=== PATIENT | female | born 1980 | race Caucasian/White ===

== ENCOUNTER 2021-09-09 13:21 | Emergency (ER) | payer OTHER ==
[~2021-09-09] VITALS: Ht 175.3 cm; Wt 86.2 kg
[2021-09-09] MEDS ORDERED: ZOLOFT50 M1 PO (13:31)
[2021-09-09] MEDS ORDERED: ABILIFY10 MG PO (13:31)
[2021-09-09] MEDS ORDERED: DESYREL150 MG PO (13:32)
[2021-09-09] MEDS ORDERED: STRATTERA10 MG PO (13:32)
[2021-09-09] MEDS ORDERED: LIPITOR10 MG PO (13:32)
[2021-09-09] MEDS ORDERED: VALACYCLOVIR1000 MG PO (13:33)
[2021-09-09] MEDS ORDERED: NORTRIPTYLINE H10 M1 PO (13:33)
[2021-09-09 14:19] LABS: ABSOLUTE NEUTROPHILS 4.4 thou/uL (1.4-8.2); BASOPHILS 0.7 % (0.0-2.0); EOSINOPHILS 3.4 % (0.0-3.0); HEMATOCRIT 40.7 % (37.0-47.0); HEMOGLOBIN 13.3 gm/dL (12.0-15.0); LYMPHOCYTES 32.8 % (24.0-44.0); MCHC 32.8 g/dL (28.0-37.0); MCV 97.5 fL (80.0-100.0); MONOCYTES 7.8 % (1.0-8.0); PLATELET COUNT 271 thou/uL (150-400); POLYS 55.3 % (36.0-66.0); RBC 4.18 mil/uL (4.20-5.00); RDW 13.7 % (10.5-14.5); WBC 7.9 thou/uL (4.0-11.0)
[2021-09-09 14:22] LABS: CALCIUM 9.1 mg/dL (8.5-10.1); POTASSIUM 3.7 mmol/L (3.5-5.1)
[2021-09-09 14:33] LABS: ALBUMIN 4.6 g/dL (3.4-5.0); TOTAL BILIRUBIN 0.3 mg/dL (0.2-1.0); TOTAL PROTEIN 7.5 g/dL (6.4-8.2)
[2021-09-09 14:52] VITALS: BP 119/74
--- NOTE | 2021-09-10 07:44 | EKG ---
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 : 1980 Requested By: Marjan Enciso Order Number: [id number] MD: Andrey Velazquez Measurements Intervals [place] Rate: 92 P: 70 IL: 147 QRS: 69 QRSD: 82 T: 48 QT: 363 QTc: 450 Interpretive Statements Sinus rhythm RSR' in V1 or V2, probably normal variant No previous ECG available for comparison Electronically Signed On 09-10-2021 7:44:29 [employer] TECHNICIAN by Andrey Velazquez [email or web address] <ELECTRONICALLY SIGNED> By: Andrey Velazquez MD, [facility] 09/10/21 [id number] [id number] 1326 Andrey Velazquez MD, FACC /EPI
== END 2021-09-09 15:28 | disposition home or self-care (01) ==
LOC: ER 13:21
PROVIDERS: Student in an Organized Health Care Education/Training Program
DX: R07.89 Other chest pain (principal); Z88.6 Allergy status to analgesic agent; Z79.899 Other long term (current) drug therapy